=== PATIENT | male | born 1965 | race African-American/Black ===

== ENCOUNTER 2023-02-15 19:25 | Emergency (ER) | payer OTHER ==
[2023-02-15 19:31] VITALS: BP 128/82; PULSE 80; RESP 18; TEMP 98.7; BMI 29.1
[2023-02-15] MEDS ORDERED: ACETAMINOPHEN 500 MG TABLET (FP) PO ONE (20:21)
[2023-02-15] MEDS ORDERED: LIDOCAINE 5% TOPICAL PATCH TP ONE (20:23)
[2023-02-15] MEDS ORDERED: LIDOCAINE 5% TOPICAL PATCH ONE (21:25)
[2023-02-15] MEDS ORDERED: LIDOCAINE PATCH REMOVAL MC SCH (22:00)
== END 2023-02-15 21:33 | disposition home or self-care (01) ==
LOC: JER 19:25
DX: M79.10 Myalgia, unspecified site (principal); M25.511 Pain in right shoulder; M25.562 Pain in left knee; S80.212A Abrasion, left knee, initial encounter; W01.0XXA Fall on same level from slipping, tripping and stumbling without subsequent striking against object, initial encounter; Y93.9 Activity, unspecified; Y92.816 Subway car as the place of occurrence of the external cause
CPT/HCPCS: 71046-TC-FY; 73030-TC-RT-FY; 73562-TC-LT-FY; 99284-25